=== PATIENT | female | born 1955 | race Caucasian/White ===

== ENCOUNTER 2022-09-03 07:30 | Outpatient (CLI) | payer OTHER | END 2022-09-03 13:05 | disposition home or self-care (01) | LOC: TOM 07:30 | DX: K57.30 Diverticulosis of large intestine without perforation or abscess without bleeding (principal); Z86.010 Personal history of colon polyps ==

== ENCOUNTER → 2024-01-31 | Outpatient (CLI) | payer OTHER | END | disposition home or self-care (01) | LOC: SONOGRAMA 09:10 | PROVIDERS: ATTEND Pathology Anatomic Pathology & Clinical Pathology | DX: D34 Benign neoplasm of thyroid gland (principal); E04.2 Nontoxic multinodular goiter ==